=== PATIENT | female | born 1950 | race Caucasian/White ===

== ENCOUNTER 2023-10-14 09:39 | Day surgery (SDC) | payer MEDICARE, OTHER ==
[~2023-10-14] VITALS: Ht 149.9 cm; Wt 71.7 kg
[2023-10-14] MEDS ORDERED: fentaNYL citrate 0.05 MG/ML VIAL ONE (11:34)
[2023-10-14] MEDS ORDERED: LIDOCAINE 2% 100 MG/5 ML UJET TP ONE (11:34)
[2023-10-14] MEDS: fentaNYL citrate 0.05 MG/ML VIAL IVP ONE (11:50)
[2023-10-14] MEDS: LIDOCAINE 2% 100 MG/5 ML UJET TP ONE (11:55)
== END 2023-10-14 12:52 | disposition home or self-care (01) ==
LOC: MMU 09:39 → MDS 09:39
PROVIDERS: ATTEND Internal Medicine Gastroenterology
DX: D64.9 Anemia, unspecified (principal); K59.00 Constipation, unspecified; I10 Essential (primary) hypertension; E78.5 Hyperlipidemia, unspecified; E11.9 Type 2 diabetes mellitus without complications; Z88.8 Allergy status to other drugs, medicaments and biological substances; Z79.899 Other long term (current) drug therapy; Z98.890 Other specified postprocedural states
CPT/HCPCS: 45378; 82948; J3010